=== PATIENT | female | born 1930 | race Caucasian/White ===

== ENCOUNTER 2016-11-29 13:13 | Inpatient (IN) | payer OTHER ==
--- NOTE | 2016-11-29 13:25 | EDPHY ---
H & P Stated Complaint: Fall on last stair. pain in rt UE HPI/ROS: CHIEF COMPLAINT: Right shoulder and right humerus pain HISTORY OF PRESENT ILLNESS: 86-year-old female no anticoagulant use arrives via ambulance, not a trauma activation, after she missed the last stair at her home, fell onto her right shoulder and humerus complaining of pain at same location. This is a purely mechanical incident non syncopal. She denies: Alcohol use, head injury, C-spine pain or injury, back pain injury , chest pain or injury, elbow pain or injury, hip pelvic injury. PRIMARY CARE PROVIDER: [facility] REVIEW OF SYSTEMS: A ten point review of systems was performed and is negative with the exception of the items mentioned in the HPI PAST MEDICAL/SURGICAL HISTORY: no anticoagulant use, no relevant medical/ surgical history SOCIAL HISTORY: denies alcohol use at time of incident. Patient lives in a home with other housemates unrelated to her. PHYSICAL EXAM 1) GENERAL: Well-developed, well-nourished, alert and oriented. Appears uncomfortable Answering questions appropriately. 2) HEAD: Normocephalic, atraumatic 3) HEENT: Pupils equal, round, reactive to light bilaterally. Negative Horners. Nasopharynx, oropharynx, clear. No deformity or angulation of nose. No septal hematoma. No rhinorrhea. No oral trauma. Ears bilaterally with normal tympanic membranes. No hemotympanum. No fluid or blood in the external auditory canal. No raccoon eyes. No Mendez sign. . 4) NECK: No cervical collar is on. Posterior cervical spine is nontender, no stepoff, no effusion. Full range of motion which does not elicit any midline cervical spine pain, no posterior midline tenderness, no step-off. 5) LUNGS: Clear to auscultation bilaterally, no wheezes, no rhonchi, no retractions. No obvious signs of trauma. No chest wall pain. No flaring, no grunting. Moving symmetrically. No crepitus. 6) HEART: Regular rate and rhythm, 7) ABDOMEN: No guarding, no rebound, no focal tenderness, no peritoneal signs, no signs of trauma, no ecchymosis 8) MUSCULOSKELETAL: Right upper extremity: Pre-hospital splint in place, taken down revealing normal appearing skin, no tenting, no puncture wound or laceration. Tender to palpation mid to proximal humerus. Distal radial ulnar median nerve function intact. Elbow forearm and hand wrist are nontender. Brisk pulses distally. Soft compartments. Otherwise, Moving all extremities, no focal areas of tenderness, no obvious trauma. Specifically bilateral hips nontender. No shortening or leg length discrepancy. 9) BACK: No midline vertebral tenderness, no fluctuance, no step-off, no obvious trauma, no visual or palpable abnormality. 10) SKIN: No laceration. No abrasion DIFFERENTIAL DIAGNOSIS:in no particular order including but not limited to fracture, sprain, dislocation - Personal History Current Tetanus/Diphtheria Vaccine: Unsure Current Tetanus Diphtheria and Acellular Pertussis (TDAP): Unsure - Medical/Surgical History Hx Asthma: No Hx Chronic Respiratory Disease: No Hx Diabetes: No Hx Cardiac Disease: No Hx Renal Disease: No Hx Cirrhosis: No Hx Alcoholism: No Hx HIV/AIDS: No Hx Splenectomy or Spleen Trauma: No - Social History Smoking Status: Former smoker Constitutional: Initial Vital Signs Temperature (C) 36.7 C 11/29/16 13:13 Heart Rate 68 11/29/16 13:13 Respiratory Rate 16 11/29/16 13:13 Blood Pressure 185/106 H 11/29/16 13:13 O2 Sat (%) 92 11/29/16 13:13 O2 Delivery Mode Room Air Allergies/Adverse Reactions: No Known Allergies Allergy (Unverified 11/29/16 13:19) Home Medications: Medication Instructions Recorded ASPIRIN 11/29/16 Atenolol 11/29/16 Citalopram 11/29/16 Losartan Potassium 11/29/16 Medical Decision Making - Diagnostics Imaging Results: Imaging Impressions Humerus X-Ray 11/29/16 13:23 Impression: Displaced angulated rotated distal humeral diaphyseal fracture. Shoulder X-Ray 11/29/16 13:23 Impression: 1. Distal right humerus fracture. 2. Chronic rotator cuff tear. 3. No surgical neck fracture or dislocation. Procedures: Procedure: Splint A coaptation fiberglass splint was applied by ER ceramics technician. After application of the splint I returned and re-examined the patient. The splint was adequately immobilizing the joint and distal to the splint the patient's circulation and sensation were intact. Patient shows no signs of compartment syndrome. ED Course/Re-evaluation: 2:04 p.m.: Patient has been re-evaluated with serial exams. She remains neurovascularly intact with soft compartments. Discussed her imaging results showing a distal humerus fracture. She will be splinted. She does not feel safe being discharged home, stating that she does not feel she is able to care for herself with her arm immobilized. Plan will be admission. 2:10 p.m.: Case discussed with Dr. Aroldo Rainey 2:14 p.m.: . Phone consultation with [place] who agrees to have patient stay at [facility]. Phone consultation with hospitalist Dr. Agarwal who will admit primarily with Ortho consultation 2:48 p.m.: Phone consultation with Dr. Costa Milligan who will consult Orthopedics - Data Points Medications Given: Discontinued Medications Fentanyl (Sublimaze) 50 mcg IVP EDNOW ONE Stop: 11/29/16 13:40 Last Admin: 11/29/16 13:58 Dose: 50 mcg Hydromorphone HCl (Dilaudid) 0.5 mg IVP EDNOW ONE Stop: 11/29/16 14:30 Last Admin: 11/29/16 14:31 Dose: 0.5 mg Departure - Departure Disposition: [facility] In[facility] Acute Clinical Impression: Closed right humeral fracture Qualifiers: Encounter type: initial encounter Humerus Location: distal Fracture morphology : other fracture Fracture alignment: displaced Qualified Code(s): S42.491A - Other displaced fracture of lower end of right humerus, initial encounter for closed fracture Condition: Good
[2016-11-29] MEDS ORDERED: fentaNYL 100 MCG/2 ML INJ IVP ONE (13:39)
[2016-11-29] MEDS ORDERED: HYDROmorphONE/DILAUDID 1 MG/ML INJ IVP ONE (14:29)
[2016-11-29 15:02] LABS: % IMMATURE GRANULYOCYTES 0.7 % (0.0-1.1); ABSOLUTE IMMATURE GRANULOCYTES 0.09 10^3/uL (0.00-0.10); ADD DIFF? NO; ADD MORPH? NO; ADD SCAN? NO; ATYPICAL LYMPHOCYTE FLAG 0 (0-99); FRAGMENT RBC FLAG 0 (0-99); HEMATOCRIT 39.8 % (38.0-47.0); HEMOGLOBIN 12.8 g/dL (12.6-16.3); LEFT SHIFT FLG 0 (0-99); LIPEMIA HEMOLYSIS FLAG 80 (0-99); MEAN CELL HEMOGLOBIN 29.6 pg (27.9-34.1); MEAN CELL HEMOGLOBIN CONCENTR. 32.2 g/dL (32.4-36.7); MEAN CELL VOLUME 92.1 fL (81.5-99.8); MEAN PLATELET VOLUME 10.4 fL (8.7-11.7); PLATELET CLUMPS FLAG 10 (0-99); PLATELET COUNT 188 10^3/uL (150-400); RED BLOOD CELL COUNT 4.32 10^6/uL (4.18-5.33); RED CELL DISTRIBUTION WIDTH 14.5 % (11.5-15.2)
[2016-11-29 15:14] LABS: ANION GAP 10 mEq/L (8-16); CARBON DIOXIDE 24 mEq/l (22-31); CHLORIDE 105 mEq/L (97-110); CREATININE 0.9 mg/dL (0.6-1.0); GLOMERULAR FILTRATION RATE 59; GLUCOSE 139 mg/dL (70-100); POTASSIUM 4.4 mEq/L (3.5-5.2); SODIUM 139 mEq/L (134-144)
--- NOTE | 2016-11-29 15:16 | EDPHY ---
ED Progress Note Narrative: I evaluated this patient and discussed the case with the orthopedic surgeon and Chance mitchell. Patient has a dense radial nerve palsy most likely with the radial nerve causing fracture site. She will be admitted to the hospitalist taken the operating room tomorrow morning. She is appropriately comfortably splinted with attention to the potential for skin breakdown in this 86-year-old.
[2016-11-29 15:20] LABS: INR 1.12 (0.83-1.16); PROTIME(PATIENT) 14.3 SEC (12.0-15.0)
[2016-11-29 15:21] LABS: APTT 29.8 SEC (23.0-38.0)
--- NOTE | 2016-11-29 16:11 | GCON ---
[f rep st] CONSULTATION CHIEF COMPLAINT: Right distal humerus fracture. HISTORY OF PRESENT ILLNESS: An 86-year-old female, who fell after missing the last stair at her home . She forgot she was on the stairs, she was talking on the phone. She fell on her arm and sustained this fracture and complained of pain. She was brought into the hospital and evaluated for other inj uries, and deemed an isolated injury, and I was consulted. PAST MEDICAL HISTORY: Includes hypertension, otherwise, unremarkable. ALLERGIES: None. SOCIAL HISTORY: She denies alcohol. Lives at home independently. FAMILY HISTORY: Noncontributory. MEDICATIONS: Please see medication list. REVIEW OF SYSTEMS: A 10-point review of systems otherwise negative. PHYSICAL EXAM: GENERAL: She is alert, oriented, well-developed, normal appearing. HEAD: Normoceph alic and atraumatic. HEENT: Eyes are equal, round and reactive. Face is atraumatic. Her mouth shows moist mucous membranes. NECK: Shows good motion, no collar is on. LUNGS: Clear to auscultation. HEART: Regular rate and rhythm. ABDOMEN: Soft. MUSCULOSKELET AL: Right upper extremity is in a coaptation splint. I did not take this down. She is holding this awkwardly. She does have some pain in her shoulder, and she has a known rotator cuff injury. Dista l exam of her hand, she has a complete radial nerve palsy, with no ability to extend the wrist or ext end the fingers. She can actively flex her fingers and flex her thumb, as well as minimally abduct t he fingers with 3/5 strength. Her left hand shows full intact 5/5 strength in all nerve distribution s. She does have some numbness in the radial nerve distribution as well. Her lower extremities are without abnormality and move well. No areas of tenderness. RADIOLOGY: X-rays reveal a displaced rotated spiral distal humerus fracture. ASSESSMENT: 1. Right distal humerus fracture. 2. Right radial nerve palsy. PLAN: I discussed the nature of her condition and treatment options to her and her son. Given the d isplacement, the rotation, the distal nature of this fracture, and the radial nerve palsy, I would re commend operative intervention. We will make arrangements to fix this in the morning. I counseled h er that her radial nerve palsy would unlikely improve immediately after surgery, but as long as the n erve is not severed, that operative intervention would potentially be helpful in removing the nerve, which may be entrapped in the fracture site and helping this palsy improve over time. She may not re gain this nerve function however. We discussed the risks of nonunion, malunion, wound complications, and she has elected to proceed. She will be n.p.o. at midnight. /[id number]/MODL
[2016-11-29] MEDS ORDERED: PROMETHAZINE HCL 25 MG/ML INJ IVP PRN (16:13)
[2016-11-29] MEDS ORDERED: ONDANSETRON DISINTEGRATING 4 MG TAB PO PRN (16:13)
[2016-11-29] MEDS ORDERED: HYDROmorphONE/DILAUDID 1 MG/ML INJ IVP PRN (16:13)
[2016-11-29] MEDS ORDERED: ONDANSETRON 4 MG/2 ML VIAL IVP PRN (16:13)
[2016-11-29] MEDS ORDERED: NS 1,000 ML IV SCH (16:15)
[2016-11-29] MEDS: ACETAMINOPHEN 325 MG TAB PO PRN (20:12)
--- NOTE | 2016-11-29 22:26 | GHP ---
[f rep st] HISTORY AND PHYSICAL DATE OF ADMISSION: 11/29/2016 CHIEF COMPLAINT: Right arm pain. HISTORY: This is an 86-year-old female with past medical history of hypertension, who is generally a [facility] patient, and is presenting status post a fall at home with resultant right arm pain. Apparen tly, the patient was walking down the stairs at home when she missed the last stair and fell onto her right shoulder without any other injuries. Roommates found her at home and brought [facility]. She denies any other pain. PAST MEDICAL HISTORY: Hypertension. FAMILY HISTORY: Reviewed and noncontributory. Parents are . SOCIAL HISTORY: The patient is living independently. She does have 2 boarders, whom she hopes to be able to utilize as help at home. She is accompanied here by her son. She is a nonsmoker. Does not drink regularly. REVIEW OF SYSTEMS: 10-point review of systems obtained, and negative except as per HPI. HOME MEDICATIONS: 1. Cholecalciferol. 2. Aspirin. 3. Losartan. 4. Citalopram. 5. Atenolol. ALLERGIES: Multiple, and include penicillin and sulfa. PHYSICAL EXAMINATION: VITAL SIGNS: BP 146/80, heart rate 63, respiratory rate 18, O2 sat 96% on igor m air, temperature is 36.6. GENERAL APPEARANCE: This is an elderly female. She is awake and alert. She is in no acute distress. EYES: Anicteric. HENT: Oropharynx clear. CARDIOVASCULAR: RRR, no MRG. PULMONARY: CTA bilaterally to anterior exam. ABDOMEN: Soft, nontender, nondistended. EXTRE MITIES: Right upper extremity is in a splint. Otherwise, no clubbing, cyanosis, or edema. SKIN: W arm, dry, well perfused. NEURO/PSYCH: Oriented and appropriate. Possibly some cognitive dysfunctio n at present. CLINICAL DATA: Labs reviewed. White blood cell count 13. Coags are normal. Chemistries remarkable only for glucose of 139. Humerus x-ray, personally reviewed and interpreted, shows a displaced and angulated distal humeral fr acture. ASSESSMENT/PLANS: This is an 86-year-old female, with a past medical history of hypertension, who pr esents status post mechanical fall with a right humeral fracture. 1. Right humeral fracture. This has been splinted by the ER and evaluated by Orthopedics, who recom mends surgical intervention in the morning. The patient understands that plan and is amenable to braeden t. She will be kept n.p.o. after midnight. 2. Radial nerve palsy. This is associated with the fracture as noted on exam, and she is unable to extend her wrist or fingers. It is hopeful that this will improve with surgical intervention, as it is thought that the nerve may possibly be entrapped in the fracture site. PT/OT will be involved. 3. Hypertension. Blood pressure has been fairly high since arrival, though she is also in pain. Elvi mayo will be resumed on her home medications, which is a somewhat unusual regimen, including atenolol 25 b.i.d. and losartan 25 q.i.d. Will monitor. 4. Code status. The patient was able to state that she does have a living will, but she is not cert ain of the contents. This has been requested. For now, she will be full code. 5. Inpatient status. The patient will need greater than 48-hour stay for evaluation and management as above. 6. The patient is new to my care. Old records reviewed, summarized as per HPI and Past Medical Hist ory. Care plan reviewed with the patient's son, present at bedside. /[id number]/MODL
[2016-11-30] MEDS: ACETAMINOPHEN 325 MG TAB PO PRN ×2 (05:20→16:26)
[2016-11-30] MEDS: LOSARTAN POTASSIUM 25 MG TAB PO SCH ×4 (05:20→21:22)
[2016-11-30] MEDS ORDERED: BUPIVACAINE 0.25% 30 ML SDV ONE (07:28)
[2016-11-30] MEDS ORDERED: ceFAZolin 2 GM/DEXTROSE 100 ML IV ONE (07:42)
--- NOTE | 2016-11-30 07:46 | SOAPPROG ---
[facility] Progress Note Assessment/Plan: Assessment: right humerus fx right radial nerve palsy Plan: orif right humerus 11/30/16 07:45 Subjective: pain in right arm Objective: Vital Signs Temp Pulse Resp BP Pulse Ox 36.9 C 73 18 158/102 H 2 L 11/30/16 05:31 11/30/16 05:31 11/30/16 05:31 11/30/16 05:31 11/30/16 05:31 11/29/16 11/30/16 12/01/16 05:59 05:59 05:59 Output Total 800 Balance -800 PT 14.3 SEC (12.0-15.0) 11/29/16 14:55 INR 1.12 (0.83-1.16) 11/29/16 14:55 splint intact no function of radial nerve ICD10 Worksheet Patient Problems: Problems Problem Status Onset Closed right humeral fracture Acute
[2016-11-30 07:49] LABS: % IMMATURE GRANULYOCYTES 0.5 % (0.0-1.1); ABSOLUTE IMMATURE GRANULOCYTES 0.04 10^3/uL (0.00-0.10); ADD DIFF? NO; ADD MORPH? NO; ADD SCAN? NO; ATYPICAL LYMPHOCYTE FLAG 0 (0-99); FRAGMENT RBC FLAG 0 (0-99); HEMATOCRIT 34.4 % (38.0-47.0); LEFT SHIFT FLG 0 (0-99); LIPEMIA HEMOLYSIS FLAG 80 (0-99); MEAN CELL HEMOGLOBIN 29.6 pg (27.9-34.1); MEAN CELL VOLUME 92.7 fL (81.5-99.8); MEAN PLATELET VOLUME 10.6 fL (8.7-11.7); PLATELET CLUMPS FLAG 0 (0-99); PLATELET COUNT 161 10^3/uL (150-400); RED BLOOD CELL COUNT 3.71 10^6/uL (4.18-5.33); RED CELL DISTRIBUTION WIDTH 14.6 % (11.5-15.2)
[2016-11-30] MEDS ORDERED: CEFAZOLIN 2 GM/DEXTROSE/100 ML BAG IV ONE (07:54)
[2016-11-30 07:56] LABS: ANION GAP 6 mEq/L (8-16); CALCIUM 9.3 mg/dL (8.5-10.4); CARBON DIOXIDE 26 mEq/l (22-31); CHLORIDE 106 mEq/L (97-110); CREATININE 0.8 mg/dL (0.6-1.0); GLOMERULAR FILTRATION RATE > 60; GLUCOSE 111 mg/dL (70-100); POTASSIUM 3.8 mEq/L (3.5-5.2); SODIUM 138 mEq/L (134-144)
--- NOTE | 2016-11-30 08:02 | PDANEPAE ---
ANE History of Present Illness R humerus fx. Radial nerve out. ANE Past Medical History - Cardiovascular History Hx Hypertension: Yes Hx Arrhythmias: No Hx Chest Pain: No Hx Coronary Artery / Peripheral Vascular Disease: No Hx CHF / Valvular Disease: No Hx Palpitations: No - Pulmonary History Hx COPD: No Hx Asthma/Reactive Airway Disease: No Hx Recent Upper Respiratory Infection: No Hx Oxygen in Use at Home: No Hx Sleep Apnea: No Sleep Apnea Screening Result - Last Documented: Positive - Endocrine History Hx Diabetes: No - Chronic Pain History Chronic Pain: No ANE Review of Systems Review of Systems: - Exercise capacity METS (RN): 3 METS ANE Patient History - Allergies Allergies/Adverse Reactions: erythromycin base Allergy (Mild, Verified 11/29/16 20:12) Vomiting felodipine Allergy (Verified 11/29/16 20:12) Penicillins Allergy (Verified 11/29/16 20:12) Sulfa (Sulfonamide Antibiotics) Allergy (Verified 11/29/16 20:12) triamterene Allergy (Verified 11/29/16 20:12) - Home Medications Home Medications: Aspirin EC [Aspirin EC 81 mg (*)] 81 mg PO DAILY 11/29/16 [Last Taken 11/29/16] Atenolol [Tenormin 25 mg (*)] 25 mg PO BID 11/29/16 [Last Taken 11/29/16] Cholecalciferol Vit D3 [Vitamin D3 (*)] 5,000 units PO DAILY 11/29/16 [Last Taken 11/29/16] Citalopram Hydrobromide [Celexa] 40 mg PO DAILY 11/29/16 [Last Taken 11/29/16] Herbals/Supplements -Info Only 1 ea PO DAILY 11/29/16 [Last Taken 11/29/16] Losartan Potassium [Cozaar 25 mg (*)] 25 mg PO QID 11/29/16 [Last Taken 11/29/16 ] - NPO status NPO Since - Liquids (Date): 11/29/16 NPO Since - Liquids (Time): 00:00 NPO Since - Solids (Date): 11/29/16 NPO Since - Solids (Time): 00:00 - Smoking Hx Smoking Status: Former smoker ANE Labs/Vital Signs - Labs Result Diagrams: 11/30/16 07:27 11/30/16 07:27 - Vital Signs Blood Pressure: 158/102 Heart Rate: 78 Respiratory Rate: 18 O2 Sat (%): 2 Height: 165.1 cm Weight: 74 kg ANE Physical Exam - Airway Neck exam: decreased ROM Mallampati Score: Class 2 - Pulmonary Pulmonary: no respiratory distress, no rales or rhonchi - Cardiovascular Cardiovascular: systolic murmur (2/6) ANE Anesthesia Plan Anesthesia Plan: general endotracheal anesthesia
[2016-11-30] MEDS ORDERED: PROPOFOL/EMULSION 500 MG/50 ML BOTTLE IV ONE (08:06)
[2016-11-30] MEDS ORDERED: fentaNYL 100 MCG/2 ML INJ ONE ×3 (08:06→09:02)
[2016-11-30] MEDS ORDERED: PHENYLEPHRINE HCL 100 MCG/ML SYR ONE (08:09)
[2016-11-30] MEDS ORDERED: DEXAMETHASONE 4 MG/ML VIAL ONE (08:09)
[2016-11-30] MEDS ORDERED: LIDOCAINE 2% 5 ML SDV ONE (08:09)
[2016-11-30] MEDS ORDERED: ROCURONIUM 50 MG/5 ML VIAL ONE (08:10)
[2016-11-30] MEDS ORDERED: GLYCOPYRROLATE 0.2 MG/1 ML VIAL ONE ×2 (08:10→10:41)
[2016-11-30] MEDS ORDERED: THROMBIN (BOVINE) 5,000 UNIT VIAL TP ONE (09:57)
[2016-11-30] MEDS ORDERED: ONDANSETRON 4 MG/2 ML VIAL ONE (10:41)
[2016-11-30] MEDS ORDERED: NEOSTIGMINE METHYLSULFATE 3 MG/3 ML SYR ONE (10:41)
--- NOTE | 2016-11-30 10:42 | POSTOPPROG ---
Post Op Note Date of Operation: 11/30/16 Surgeon: Costa Milligan Corporate Statistical Financial Analyst: Kelsey Anesthesiologist: Kenroy Anesthesia: GET(General Endotracheal) Pre-op Diagnosis: R humerus fx, radial nerve palsy Post-op Diagnosis: same Indication: above Procedure: orif right humerus fracture Inf/Abcess present in the surg proc area at time of surgery?: No EBL: 100-500
[2016-11-30] MEDS ORDERED: LABETALOL HCL 5 MG/ML 20 ML MDV ONE (10:43)
[2016-11-30] MEDS ORDERED: NALOXONE HCL 0.4 MG/ML INJ IVP PRN (10:56)
[2016-11-30] MEDS ORDERED: HYDROmorphONE/DILAUDID 1 MG/ML INJ IVP PRN (10:56)
[2016-11-30] MEDS ORDERED: fentaNYL 100 MCG/2 ML INJ IVP PRN (10:56)
--- NOTE | 2016-11-30 11:22 | GOP ---
[f rep st] OPERATIVE REPORT DATE OF OPERATION: 11/30/2016 SURGEON: Costa Milligan MD NEW PRODUCT TRAINER: Cy Cole SA ANESTHESIA: General. PREOPERATIVE DIAGNOSIS: Right humerus fracture and radial nerve palsy. POSTOPERATIVE DIAGNOSIS: Right humerus fracture and radial nerve palsy. PROCEDURE PERFORMED: Open reduction internal fixation, right humerus. FINDINGS: SPECIMENS: None. ESTIMATED BLOOD LOSS: 200 mL. INDICATIONS: An 86-year-old female, who fell at home, sustaining this spiral displaced and rotated h umerus fracture. Upon examination in the ED, she had a dense radial nerve palsy with no functional r adial nerve. This, according to her, was working just fine before the trauma. I counseled her on th e risks, benefits of operative intervention. I discussed that the nerve may never recover or may christine e a very long time to recover, the nerve could potentially be severed by the fracture, though I did n ot believe this to be the case. I discussed arterial injury, vessel injury, further neurovascular in jury, displacement of the fracture, hardware prominence, wound complications. She would like to proc eed. Informed consent obtained. All questions answered. She was marked preoperatively. DESCRIPTION OF PROCEDURE: She was taken to the operative suite. Anesthesia was administered, patien t positioned. Bony prominences were padded. She was given 2 g of Ancef. Sterile prep and drape, a time-out was performed, verifying the patient, side, site, location. There was agreement of all memb ers of the team. Incision was made over the posterior lateral humerus. I injected with Marcaine with epinephrine for pain control and hemostasis. I dissected down to the fascia and incised this. I then started elevat ing the triceps from lateral to medial. I found the superficial branch of the radial nerve, and then the main radial nerve. It was not in the fracture site. I marked these vessels and retracted these throughout the case. I coagulated vessels, exposed the humeral shaft proximal and distal to the fra cture site. There was some comminution in this, this was long spiral and rotated. I was able to man ually reduce this and hold this with K-wires. We checked this fluoroscopically. Placed a plate on a nd checked this location fluoroscopically. Made adjustments and checked this again. I then placed c ortical screws in the plate proximal and distal to bring this to bone. I then placed lockers proxima lly and distally, creating a stable construct, took it through a range of motion. This was stable. X-rays confirmed plate placement and screw placement, and fracture reduction. I placed some Gel-Foam that had been soaked under the radial nerve, which did go over the plate. I then irrigated this, cl osed with 0 Vicryl in the fascial layer, 2-0 Vicryl, 3-0 Quill, and Dermabond. She was taken to PACU in stable condition. IMPLANTS: Synthes posterior lateral humeral locking plate. COMPLICATIONS: None. DRAINS: None. CONDITION: Stable. /[id number]/MODL
--- NOTE | 2016-11-30 12:32 | ASMTCMCOM ---
CM Note CM Note Notes: Pt admitted with rt humerous fx. She had surgery this AM. Spoke with pt's dtr Teresita who would like a SNF if possible. Pt is [facility] and dtr chose [facility]. Faxed referral but no PT/OT evals yet. C/M to follow. Date Signed: 11/30/2016 12:31 PM Electronically Signed By:Jennifer Mojica LCSW
[2016-11-30] MEDS: CHOLECALCIFEROL VIT D3 2,000 UNITS TAB/CAP PO SCH (13:15)
[2016-11-30] MEDS: CITALOPRAM 20 MG TAB PO SCH (13:18)
--- NOTE | 2016-11-30 15:02 | HOSPPROG ---
Hospitalist Progress Note Assessment/Plan: 86y female with fall. C/O arm pain. First encounter, chart reviewed. # Right humerus fx to OR today #Right radial nerve palsy related to fx possible resolution with surger #HTN better #Dispo unclear, will need cont care in hospital setting. likely need SNF Subjective: Tired, arousable post op. Objective: Vital Signs Temp Pulse Resp BP Pulse Ox 36.4 C 73 14 110/68 96 11/30/16 14:19 11/30/16 14:19 11/30/16 14:19 11/30/16 14:19 11/30/16 14:19 Laboratory Results 11/30/16 07:27 11/30/16 07:27 11/29/16 11/30/16 12/01/16 05:59 05:59 05:59 Output Total 800 Balance -800 PT 14.3 SEC (12.0-15.0) 11/29/16 14:55 INR 1.12 (0.83-1.16) 11/29/16 14:55 - Physical Exam Constitutional: no apparent distress, appears nourished, not in pain Eyes: PERRL, anicteric sclera, EOMI Ears, Nose, Mouth, Throat: moist mucous membranes, hearing normal, ears appear normal Cardiovascular: regular rate and rhythym, No JVD, No edema Respiratory: no respiratory distress, no rales or rhonchi, reduced air movement Gastrointestinal: No tenderness, No ascites, No guarding Skin: warm, normal color, No erythema Musculoskeletal: no joint effusions, pain with ROM, generalized weakness Psychiatric: not anxious, not encephalopathic, poor judgement, poor memory ICD10 Worksheet Patient Problems: Problems Problem Status Onset Closed right humeral fracture Acute
[2016-11-30] MEDS: ATENOLOL 25 MG TAB PO SCH ×2 (16:52→21:21)
[2016-12-01] MEDS: ACETAMINOPHEN 325 MG TAB PO PRN ×3 (03:08→20:48)
[2016-12-01] MEDS: oxyCODONE IR 5 MG TAB PO PRN ×3 (04:40→20:49)
[2016-12-01] MEDS: LOSARTAN POTASSIUM 25 MG TAB PO SCH ×4 (05:14→19:36)
--- NOTE | 2016-12-01 08:49 | SOAPPROG ---
[facility] Progress Note Assessment/Plan: Assessment: right humerus fx right radial nerve palsy s/p orif 11/30 Plan: In splint on right upper extremity she is on a 1 lb weight limit with right upper extremity. May move shoulder and fingers to tolerance. May use sling for comfort Continue PT and OT She can take her home aspirin but does not require any other DVT prophylaxis She will follow up with me in 10-12 days in the clinic for removal of splint x- rays May discharge from my standpoint 11/30/16 07:45 12/01/16 08:47 Subjective: Pain in arm but improved with medication Objective: Vital Signs Temp Pulse Resp BP Pulse Ox 36.9 C 64 14 143/80 H 97 12/01/16 08:00 12/01/16 08:00 12/01/16 08:00 12/01/16 08:00 12/01/16 08:00 Laboratory Results 11/30/16 07:27 11/30/16 07:27 11/30/16 12/01/16 12/02/16 05:59 05:59 05:59 Intake Total 300 200 Output Total 800 50 Balance -800 250 200 PT 14.3 SEC (12.0-15.0) 11/29/16 14:55 INR 1.12 (0.83-1.16) 11/29/16 14:55 Splint intact clean and dry No function of radial nerve with no ability to actively stay extend fingers the wrist Hand is warm with good capillary refill ICD10 Worksheet Patient Problems: Problems Problem Status Onset Closed right humeral fracture Acute
[2016-12-01] MEDS: CITALOPRAM 20 MG TAB PO SCH (09:39)
[2016-12-01] MEDS: CHOLECALCIFEROL VIT D3 2,000 UNITS TAB/CAP PO SCH (09:39)
[2016-12-01] MEDS: ATENOLOL 25 MG TAB PO SCH ×2 (09:39→19:36)
[2016-12-01] MEDS ORDERED: MAGNESIUM HYDROXIDE 30 ML UDCUP PO PRN (13:14)
[2016-12-01] MEDS ORDERED: BISACODYL 10 MG SUPP PR PRN (13:14)
[2016-12-01] MEDS ORDERED: POLYETHYLENE GLYCOL 3350 17 GM PKT PO PRN (13:14)
[2016-12-01] MEDS ORDERED: LACTULOSE 20 GM/30 ML UDCUP PO PRN (13:14)
--- NOTE | 2016-12-01 13:14 | HOSPPROG ---
Hospitalist Progress Note Assessment/Plan: 86y female with fall. C/O arm pain. # Right humerus fx POD #1 in splint PT/OT #Right radial nerve palsy related to fx possible resolution with surgery fu ortho 10-12 days #HTN better #Pain cont small dose oxy #Dispo unclear, will need cont care in hospital setting. will need SNF Subjective: Up in the chair. Some confusion. No pain currently. Objective: Vital Signs Temp Pulse Resp BP Pulse Ox 36.6 C 61 14 130/79 H 97 12/01/16 11:43 12/01/16 11:43 12/01/16 11:43 12/01/16 11:43 12/01/16 11:43 Laboratory Results 11/30/16 07:27 11/30/16 07:27 11/30/16 12/01/16 12/02/16 05:59 05:59 05:59 Intake Total 300 500 Output Total 800 50 Balance -800 250 500 PT 14.3 SEC (12.0-15.0) 11/29/16 14:55 INR 1.12 (0.83-1.16) 11/29/16 14:55 - Physical Exam Constitutional: no apparent distress, appears nourished, not in pain Eyes: PERRL, anicteric sclera, EOMI Ears, Nose, Mouth, Throat: moist mucous membranes, hearing normal, ears appear normal Cardiovascular: No JVD, No edema Respiratory: no respiratory distress, reduced air movement Gastrointestinal: No tenderness, No ascites Skin: warm, normal color, No mottled Musculoskeletal: pain with ROM, generalized weakness, No normal joint ROM Psychiatric: not anxious, not encephalopathic, poor insight, poor judgement, poor memory ICD10 Worksheet Patient Problems: Problems Problem Status Onset Closed right humeral fracture Acute
--- NOTE | 2016-12-01 15:07 | ASMTCMCOM ---
CM Note CM Note Notes: Patient to discharge Friday. Notified [employer] and sent therapy notes. Date Signed: 12/01/2016 03:07 PM Electronically Signed By:Joana Kowalski LCSW
[2016-12-01] MEDS: SENNOSIDES/DOCUSATE SODIUM TAB PO SCH (19:37)
[2016-12-02] MEDS: LOSARTAN POTASSIUM 25 MG TAB PO SCH ×3 (05:11→16:08)
[2016-12-02] MEDS: oxyCODONE IR 5 MG TAB PO PRN (05:12)
[2016-12-02] MEDS: ACETAMINOPHEN 325 MG TAB PO PRN (05:13)
--- NOTE | 2016-12-02 08:02 | SOAPPROG ---
ABEL Progress Note Assessment/Plan: Assessment: right humerus fx right radial nerve palsy s/p orif 11/30 Plan: In splint on right upper extremity she is on a 1 lb weight limit with right upper extremity. May move shoulder and fingers to tolerance. May use sling for comfort Continue PT and OT She can take her home aspirin but does not require any other DVT prophylaxis She will follow up with me in 10-12 days in the clinic for removal of splint x- rays May discharge from my standpoint 11/30/16 07:45 12/01/16 08:47 Subjective: pain minimal in arm Objective: Vital Signs Temp Pulse Resp BP Pulse Ox 36.9 C 69 19 125/80 H 94 12/02/16 04:00 12/02/16 04:00 12/02/16 04:00 12/02/16 04:00 12/02/16 04:00 Laboratory Results 11/30/16 07:27 11/30/16 07:27 12/01/16 12/02/16 12/03/16 05:59 05:59 05:59 Intake Total 300 700 Output Total 50 Balance 250 700 PT 14.3 SEC (12.0-15.0) 11/29/16 14:55 INR 1.12 (0.83-1.16) 11/29/16 14:55 no ability to extend thumb, slight ability to extend fingers minmally with 2/5 strength ICD10 Worksheet Patient Problems: Problems Problem Status Onset Closed right humeral fracture Acute
[2016-12-02 09:01] VITALS: RESP 14
[2016-12-02] MEDS: CHOLECALCIFEROL VIT D3 2,000 UNITS TAB/CAP PO SCH (09:12)
[2016-12-02] MEDS: ATENOLOL 25 MG TAB PO SCH (09:12)
[2016-12-02] MEDS: SENNOSIDES/DOCUSATE SODIUM TAB PO SCH (09:12)
[2016-12-02] MEDS: CITALOPRAM 20 MG TAB PO SCH (09:13)
[2016-12-02] MEDS ORDERED: MAGNESIUM CITRATE 300 ML BOTTLE PO ONE (09:24)
[2016-12-02] MEDS ORDERED: BISACODYL 5 MG EC TAB PO ONE (09:24)
--- NOTE | 2016-12-02 09:24 | PDIAF ---
- Diagnosis Diagnosis: Right humerus fracture with nerve palsy Code Status: Do Not Resuscitate - Medication Management Discharge Medications: Medications to Continue on Transfer Aspirin EC [Aspirin EC 81 mg (*)] 81 mg PO DAILY 11/29/16 [Last Taken 11/29/16] Atenolol [Tenormin 25 mg (*)] 25 mg PO BID 11/29/16 [Last Taken 11/29/16] Cholecalciferol Vit D3 [Vitamin D3 (*)] 5,000 units PO DAILY 11/29/16 [Last Taken 11/29/16] Citalopram Hydrobromide [Celexa] 40 mg PO DAILY 11/29/16 [Last Taken 11/29/16] Herbals/Supplements -Info Only 1 ea PO DAILY 11/29/16 [Last Taken 11/29/16] Losartan Potassium [Cozaar 25 mg (*)] 25 mg PO QID 11/29/16 [Last Taken 11/29/16 ] Acetaminophen [Tylenol 325mg (*)] 650 mg PO Q4HRS PRN tab 12/02/16 [Last Taken Unknown] Bisacodyl [Bisacodyl (*)] 5 mg PO DAILY PRN #30 tab 12/02/16 [Last Taken Unknown ] Magnesium Hydroxide [Milk of Magnesia] 30 ml PO BID PRN #60 oral.susp 12/02/16 [ Last Taken Unknown] Polyethylene Glycol 3350 [Miralax 17 gm (*)] 17 gm PO DAILY PRN pkt 12/02/16 [ Last Taken Unknown] Sennosides/Docusate Sodium [Senokot-S] 1 - 2 tab PO BID tab 12/02/16 [Last Taken Unknown] oxyCODONE IR [Oxycodone Ir (*)] 5 mg PO Q4 PRN tab 12/02/16 [Last Taken Unknown ] Supply Chain Engineer Antibiotics: NA Discharge Medications: Refer to the Discharge Home Medication list for PRN reason. PICC Care - Routine: N/A - Orders Services needed: Registered Nurse, Certified Nut Sheller Machine Operator, Physical Therapy, Occupational Therapy Oxygen: 2L Diet Recommendation: no restrictions on diet Weigh Patient: weekly Kim: Not applicable Gideon Stockings Discontinue Date: while at rehab Wound Care Instructions: 1 lb weight limit right upper extremity. May move shoulder wrist and fingers to tolerance. May use sling for comfort. Keep splint dry and intact until follow-up Activity/Weight Bearing Restrictions: limited 1LB RUE weight-bearing Equipment: incentive spirometer - Follow Up Care Current Providers and Referrals: Patient,NotPresent [Unknown] - As per Instructions Costa Milligan MD [Medical Doctor] - follow up in 10 days (please call to schedule)
--- NOTE | 2016-12-02 09:30 | PDDCSUM ---
Discharge Summary Discharge Summary: DISCHARGE SUMMARY FOLLOW-UP ITEMS: Schedule outpatient follow up with Dr. Costa Milligan in 10 days, x-rays will be performed at that time DATE OF ADMISSION: 11/29/2016 DATE OF DISCHARGE: 12/02/2016 DISCHARGE DIAGNOSES: 1. Acute right humerus fracture 2. Acute right radial nerve palsy 3. Chronic hypertension 4. Constipation 5. Acute postoperative delirium CONSULTATIONS: Orthopedics by Dr. Milligan PROCEDURES / IMAGING: X-ray of right upper extremity, ORIF right humerus on 11/30/2016 CHIEF COMPLAINT: Acute right arm pain SUBJECTIVE: Patient continues to experience some pain in her right upper extremity, responding well to pain medications PHYSICAL EXAM ON DISCHARGE: Systolic blood pressure 110-130, afebrile overnight, satting well on 2 L nasal cannula, heart rate 70, lungs are clear with some faint inspiratory crackles in the bilateral bases, heart rhythm is regular, bowel sounds are present, abdomen is soft, minimally distended, sensation intact in the distal right fingers comma motor strength 5/5 left homebirth midwife, alert awake oriented x2 to person and time, concentration 7/7 LABS ON DISCHARGE: Creatinine 0.8 hemoglobin 11 HOSPITAL COURSE BY PROBLEM: 1. Acute right humerus fracture. Status post mechanical fall, required ORIF by Dr. Milligan, she is currently postop day 2 and is responding well to oral pain medications. She will have outpatient follow up with Dr. Milligan in 10 days and repeat x-rays at that time. She has weight-bearing restrictions noted in her agency form. 2. Acute right radial nerve palsy. Related to fracture, patient will continue to experience improvement status post surgery. Continue to work with occupational therapy. 3. Constipation. Postoperative, provided with aggressive bowel regimen prior to discharge and had a bowel movement, continue on scheduled Senokot S and as needed laxatives. 4. Chronic hypertension. Continue on patient's home medications. 5. Postoperative delirium. Patient experienced some postoperative delirium secondary to pain medications as well as lingering anesthesia effect. This seems to have stabilized prior to discharge. DISCHARGE MEDICATIONS: Please see official discharge medication reconciliation sheet in chart , oxycodone 5 mg q.4 hours p.r.n., bowel regiment, continue home medications. DISCHARGE INSTRUCTIONS: Please schedule follow-up with Dr. Milligan in 10 days. TIME SPENT: Greater than 30 minutes were spent on direct patient care, as well as discharge planning and preparation.
[2016-12-02 15:55] VITALS: BP 123/71; PULSE 76; TEMP 97.7; O2SAT 98
--- NOTE | 2016-12-03 09:45 | ASDISCHSUM ---
Discharge Information Plan Status:SNF Medically Cleared to Leave: Discharge Date:12/02/2016 04:40 PM CM D/C Disposition: ADT D/C Disposition:Retirement Facility Projected Discharge Date:12/02/2016 11:00 AM Transportation at D/C:Wheelchair Van Discharge Delay Reason: Follow-Up Date:12/02/2016 11:00 AM Discharge Slot: Final Diagnosis: Placement Information Referral Type:*Skilled Nursing/SNF Referral ID:[id number] Provider Name:Brittaney Braga [facility] Address 1:[address] Phone Number: Address 2: Fax Number: [facility]:[place] Selection Factors: State:[place] Referral Type:*Skilled Nursing/SNF Referral ID:[id number] Provider Name: Address 1: Phone Number: Address 2: Fax Number: City: Selection Factors: State: Patient Contact Information Contact Name:DEIRDRE Relationship: Address:[facility] [address] Work Phone: City:[place] Alternate Phone: State/Zip Code:[place] [address] Email: Financial Information Financial Class:Medicare Advantage Plans Primary Plan Desc:[employer] ADV IP Primary Plan Number:[id number] Secondary Plan Desc: Secondary Plan Number: Assessment Information [facility] CM Progress Note CM Note CM Note Notes: Pt admitted with rt alex velasco. She had surgery this AM. Spoke with pt's dtr Teresita who would like a SNF if possible. Pt is [place] and dtr chose [facility]. Faxed referral but no PT/OT evals yet. C/M to follow. Date Signed: 11/30/2016 12:31 PM Electronically Signed By:Jennifer Mojica LCSW BC CM Progress Note CM Note CM Note Notes: Patient to discharge Friday. Notified [employer] and sent therapy notes. Date Signed: 12/01/2016 03:07 PM Electronically Signed By:Joana Kowalski LCSW BC CM Progress Note CM Note CM Note Notes: Pt medically stable for d/c to [facility] Date Signed: 12/03/2016 09:35 AM Electronically Signed By:CHRISTINE Nielsen Intervention Information Intervention Type:*IM-Signed Date of Service:12/02/2016 10:28 AM Patient Type:Inpatient Staff Member:Liyah Little Hours: Discipline: Severity: Comment:
== END 2016-12-02 16:40 | DRG 494 ==
LOC: EDUNIT# → F3N 15:34 → OBSVTOIN 16:14
PROVIDERS: ADMIT Internal Medicine; ATTEND Internal Medicine
PROC: 0PSC04Z Reposition Right Humeral Head with Internal Fixation Device, Open Approach (ICD-10-PCS; principal; 2016-11-30 08:00)
DX: S49.101A Unspecified physeal fracture of lower end of humerus, right arm, initial encounter for closed fracture (principal); S44.21XA Injury of radial nerve at upper arm level, right arm, initial encounter; W10.9XXA Fall (on) (from) unspecified stairs and steps, initial encounter; Y92.018 Other place in single-family (private) house as the place of occurrence of the external cause; R41.0 Disorientation, unspecified; K59.00 Constipation, unspecified; I10 Essential (primary) hypertension; Z87.891 Personal history of nicotine dependence; Z79.82 Long term (current) use of aspirin
CPT/HCPCS: 96374; 97110-GO; 97116-GP; 97161-GP; 97166-GO; 97530-GP; 97535-GO; C1713; C1769; G8987-GO-CK; G8988-GO-CI; J0171; J0690; J1100; J1170; J2370; J2405; J2704; J2710; J3010; J3490